=== PATIENT | female | born 1930 | race Caucasian/White ===

== ENCOUNTER 2016-11-22 22:06 | Inpatient (IN) | payer MEDICARE, OTHER ==
[~2016-11-22] VITALS: Ht 157.5 cm; Wt 55.8 kg
[~2016-11-22 22:06] MED LIST: AMIO200T2 PO; ATOR20TA PO; DABI150C PO; DIGO62.5 PO; FENO145T20 PO; FERR1TAB44 PO; FESO8TAB PO; HYOS0.1273 PO; LEVO25TA7 PO; LIOT5TAB8 PO; TOPI-67 PO
[2016-11-22] MEDS ORDERED: IV SET PRIMARY 1 EA INFUS.SET MC ONE (22:19)
[2016-11-22] MEDS ORDERED: IV NS 0.9% 500 ML IV ONE (22:19)
[2016-11-22] MEDS ORDERED: TETRACAINE HCL/PF 0.5% UD 2 ML BOTTLE LEFTEYE ONE (22:30)
[2016-11-22] MEDS ORDERED: FLUORESCEIN SODIUM OPHTH 1 EA STRIP OP ONE (22:30)
[2016-11-22] MEDS ORDERED: IV NS 0.9% 500 ML BAG IV ONE (22:30)
[2016-11-22] MEDS ORDERED: FLUORESCEIN SODIUM OPHTH 1 EA STRIP ONE (22:38)
[2016-11-22] MEDS ORDERED: TETRACAINE HCL/PF 0.5% UD 2 ML BOTTLE ONE (22:38)
[2016-11-22 22:48] LABS: BASOPHILS % (AUTO) 0.4 % (0.0-2.0); EOSINOPHILS # (AUTO) 0.3 /CMM (0.0-0.7); EOSINOPHILS % (AUTO) 4.9 % (0.0-6.0); HEMATOCRIT 38 % (33-45); HEMOGLOBIN 12.5 g/dL (11.5-14.8); LYMPHOCYTES # (AUTO) 1.4 /CMM (0.8-4.8); LYMPHOCYTES % (AUTO) 23.2 % (20.0-44.0); MEAN CORPUSCULAR HEMOGLOBIN 27 PG (26.0-33.0); MEAN CORPUSCULAR HGB CONC 33 g/dl (31.0-36.0); MEAN CORPUSCULAR VOLUME 84 fL (82-100); MONOCYTES # (AUTO) 0.6 /CMM (0.1-1.30); MONOCYTES % (AUTO) 10.4 % (2.0-12.0); NEUTROPHILS # (AUTO) 3.8 /CMM (1.8-8.9); NEUTROPHILS % (AUTO) 61.1 % (43.0-81.0); PLATELET COUNT (AUTO) 307 /CMM (150-450); RDW COEFFICIENT OF VARIATION 15.5 (11.5-15.0); RED BLOOD CELL COUNT(AUTO) 4.55 MIL/uL (4.0-5.2); WHITE BLOOD COUNT (AUTO) 6.2 K/uL (4.3-11.0)
[2016-11-22 22:55] LABS: CALCIUM, SERUM 8.3 mg/dL (8.5-10.1); CARBON DIOXIDE 32 mmol/L (21-32); CHLORIDE 104 mmol/L (98-107); CREATININE 1.5 mg/dL (0.6-1.3); GLUCOSE 129 mg/dL (74-106); POTASSIUM 3.7 mmol/L (3.5-5.1); SODIUM SERUM 139 mmol/L (136-145); UREA NITROGEN, BLOOD 24 mg/dL (7-18)
[2016-11-22] MEDS ORDERED: SOD BORATE/BORIC AC/H2O/NACL 118 ML BOTTLE ONE (22:56)
[2016-11-22 23:00] LABS: ALANINE AMINOTRANSFERASE 42 U/L (12-78); ALBUMIN 3.3 g/dL (3.4-5.0); ALKALINE PHOSPHATASE 57 U/L (46-116); ASPARTATE AMINOTRANSFERASE 52 U/L (15-37); BILIRUBIN,DIRECT 0.1 mg/dL (0.0-0.2); BILIRUBIN,TOTAL 0.4 mg/dL (0.2-1.0)
[2016-11-22] MEDS ORDERED: SOD BORATE/BORIC AC/H2O/NACL 118 ML BOTTLE OP ONE (23:00)
[2016-11-22 23:05] LABS: INR 1.46 (0.87-1.13); TROPONIN I < 0.017 ng/mL (0.00-0.056)
--- NOTE | 2016-11-22 23:16 | NUR ---
PAGED METER REPAIRER HELPER DR MUHAMMAD FOR DR BRAVO EAST
[2016-11-22] MEDS ORDERED: DIGOXIN 0.25 MG TABLET ONE (23:36)
[2016-11-22] MEDS ORDERED: ACETAMINOPHEN ES 500 MG TABLET ONE (23:37)
[2016-11-22] MEDS ORDERED: TDAP [DIPH/PERTUSSIS/TET] 0.5 ML VIAL IM ONE (23:58)
[2016-11-23] VITALS (10 sets, daily range): BP systolic 113–159; BP diastolic 57–73
[2016-11-23] MEDS ORDERED: ACETAMINOPHEN ES 500 MG TABLET PO ONE
[2016-11-23] MEDS ORDERED: TDAP [DIPH/PERTUSSIS/TET] 0.5 ML VIAL IM ONE
[2016-11-23] MEDS ORDERED: DIGOXIN 0.125 MG TABLET PO ONE
--- NOTE | 2016-11-23 00:30 | NUR ---
RN OPEN NOTES RECEIVED PATIENT FROM ER VIA GURNEY WITH DAUGHTER AT BEDSIDE. NO SIGNS OF DISTRESS OR DISCOMFORT. BREATHING EVEN AND UNLABORED. NO IV ACCESS AT THIS TIME, WAS JUST PULLED OUT WHEN PATIENT TRIED TO TRANSFER TO BED. ORIENTED PATIENT TO UNIT AND ROOM. ATTACHED TELE MONITORING WITH SR HR 62. BED IN LOW LOCKED POSITION WITH SIDE RAILS X2. CALL LIGHT WITHIN REACH. WILL CONTINUE TO MONITOR.
[2016-11-23] MEDS ORDERED: HYDROCODONE/APAP 5/325MG 1 EACH TABLET PO ONE (02:00)
[2016-11-23] MEDS ORDERED: HYDROCODONE/APAP 5/325MG 1 EACH TABLET ONE (02:03)
--- NOTE | 2016-11-23 02:20 | NUR ---
RN NOTES ADMINISTER .5 TABLET NORCO 5/325 ORDERED FOR PAIN 7/10 IN LEFT SIDE OF HEAD AND FACE. WILL CONTINUE TO MONITOR.
[2016-11-23] MEDS ORDERED: ONDANSETRON HCL/PF 4 MG/2 ML VIAL IVP PRN (02:30)
[2016-11-23] MEDS ORDERED: MAGNESIUM HYDROXIDE 30 ML UDC PO PRN (02:30)
[2016-11-23] MEDS ORDERED: ACETAMINOPHEN 325 MG TABLET PO PRN (02:30)
[2016-11-23] MEDS ORDERED: MAG HYDROX/AL HYDROX/SIMETH 30 ML UDC PO PRN (02:30)
[2016-11-23] MEDS ORDERED: IV SET PRIMARY PUMP SET 1 EA INFUS.SET MC ONE (02:36)
[2016-11-23] MEDS ORDERED: IV NS 0.9% 1,000 ML ONE (02:36)
[2016-11-23] MEDS: IV NS 0.9% 1,000 ML IV PRN ×2 (02:39→21:10)
[2016-11-23 06:46] LABS: THYROID STIMULATING HORMONE 0.565 uIU/mL (0.358-3.74)
[2016-11-23 06:47] LABS: MAGNESIUM 1.9 mg/dL (1.8-2.4); PHOSPHORUS 3.3 mg/dL (2.5-4.9)
--- NOTE | 2016-11-23 06:54 | NUR ---
RN CLOSING NOTES PATIENT AWAKE IN BED. A/O X3. NO SIGNS OF DISTRESS OR DISCOMFORT. BREATHING EVEN AND UNLABORED. IV ACCESS IN R WRIST WITH NS INFUSING, PATENT AND INTACT, NO SIGNS OF REDNESS OR INFILTRATION. ON TELE MONITORING WITH SR 62. ALL NEEDS MET. NO SIGNIFICANT CHANGES THROUGH THE NIGHT. BED IN LOW LOCKED POSITION WITH SIDE RAILS X2. CALL LIGHT WITHIN REACH. WILL ENDORSE TO AM SHIFT FOR TEMITOPE.
[2016-11-23] MEDS: PANTOPRAZOLE 40 MG TABLET.DR PO SCH (07:30)
--- NOTE | 2016-11-23 07:30 | NUR ---
CUSTOMS VERIFIER OPENING RECEIVED PATIENT A/OX4 DENIES PAIN, SOB, DIFFICULTY BREATHING OR ANY NEUROLOGICAL SYMPTOMS. PATIENT APPEARS STABLE AT THIS TIME. CALL LIGHT IN REACH, BED LOWERED AND LOCKED, RAILS UPX3 FOR SAFETY AND WILL ROUND Q2H OR LESS PER NEEDS. FALL PRECAUTIONS EDUCATED AND PATIENT AWARE TO NOT GET OUT OF BED WITHOUT ASSISTANCE
[2016-11-23] MEDS: DABIGATRAN ETEXILATE MESYLATE 150 MG CAPSULE PO SCH ×2 (09:00→16:17)
--- NOTE | 2016-11-23 09:09 | NUR ---
WOUND CARE CONSULT: PATIENT SEEN AND SKIN ASSESSMENT DONE. PATIENT ALERT, ORIENTED, INDEPENDENT WITH BED MOBILITY, HOWEVER NEEDS ASSIST DUE TO PAIN ON LEFT ARM WITH SLING, CONTINENT, LIS 18. PATIENT WITH MULTIPLE BRUISE IN HEALING STAGES DUE TO "JUST FOUND HERSELF ON THE GROUND" AT THE DRIVEWAY. SHE STATED SHE DID NOT KNOW WHAT HAPPENED. RECOMMEND SKIN CARE, MOISTURE PROTECTION AND ASSIST IN TURNING AND REPOSITIONING. ALL DISCUSSED WITH NURSING STAFF. MD IN AGREEMENT WITH PLAN OF CARE. Addendum: 11/23/16 at 0914 by ANALY CUMMINS WNDNU Amended: Links added.
[2016-11-23] MEDS ORDERED: Z GUARD REMEDY 2 OZ OINT TP PRN (09:30)
[2016-11-23] MEDS: TOPIRAMATE 25 MG TABLET PO SCH (09:59)
[2016-11-23] MEDS: FENOFIBRATE NANOCRYS (145 MG) 145 MG TABLET PO SCH (09:59)
[2016-11-23] MEDS: LIOTHYRONINE SODIUM (5 MCG/TA 5 MCG TABLET PO SCH (09:59)
[2016-11-23] MEDS: LEVOTHYROXINE SODIUM 25 MCG TABLET PO SCH (09:59)
[2016-11-23] MEDS: FERROUS SULFATE (325 MG) 325 MG/TAB TABLET PO SCH (10:00)
[2016-11-23] MEDS: AMIODARONE HCL 200 MG TABLET PO SCH (10:00)
[2016-11-23] MEDS: HYOSCYAMINE SULFATE 0.125 MG TAB.SUBL SL SCH ×2 (10:01→12:32)
[2016-11-23] MEDS: HYDROCODONE/APAP 5/325MG 1 EACH TABLET PO PRN ×2 (10:03→21:12)
--- NOTE | 2016-11-23 12:24 | NUR ---
STUDENT SUCCESS COACH NOTES CHRISTELLE VALENCIA AT BEDSIDE
[2016-11-23] MEDS: DIGOXIN 0.125 MG TABLET PO SCH (12:31)
--- NOTE | 2016-11-23 13:17 | NUR ---
WETLANDS TECHNICIAN NOTES PATIENT DAUGHTER WILL BRING PRADAXA. NEEDING TO SKIP AM DOSE TOO CLOSE TO THE 1700 DOSE.
--- NOTE | 2016-11-23 14:25 | NUR ---
MS RN NOTES PATIENT AWARE WE ARE NEEDING URINE SAMPLE. HAT PLACED IN TOILET FOR PATIENT
[2016-11-23 16:24] LABS: APPEARANCE,URINE CLEAR (CLEAR); BILIRUBIN,URINE NEGATIVE (NEGATIVE); BLOOD, URINE NEGATIVE Ery/uL (NEGATIVE); COLOR,URINE YELLOW (YELLOW); KETONES,URINE NEGATIVE (NEGATIVE); LEUKOCYTE ESTERASE ,URINE NEGATIVE (NEGATIVE); NITRITE, URINE NEGATIVE (NEGATIVE); PROTEIN,URINE NEGATIVE (NEGATIVE); UGLUCOSE NEGATIVE (NEGATIVE); UROBILINOGEN,URINE 0.2 EU/dL (0.2)
[2016-11-23 16:27] LABS: CANNABINOID, URINE NEGATIVE (NEGATIVE); PHENCYCLIDINE SCREEN,URINE NEGATIVE (NEGATIVE)
--- NOTE | 2016-11-23 19:45 | NUR ---
MS RN OPENING PATIENT STABLE NO COMPLICATIONS THROUGHOUT DAY. PATIENT PAIN MANAGED WITH PRN MEDICATIONS AND NON PHARM MEASURES. PATIENT AMBULATING WITH MIN ASSIST TODAY NO COMPLAINTS. PATIENT SITTING UP IN CHAIR AT THIS TIME STABLE WITH FAMILY AT BEDSIDE. PATIENT STATES NO NEEDS. IVF RUNNING ORDERED. CALL LIGHT IN REACH, NON SLIP SOCKS ON AND REMINDING PATIENT OF FALL PRECAUTIONS; SHE STATES UNDERSTANDING. CARE ENDORSED TO RN FOR TEMITOPE
--- NOTE | 2016-11-23 20:03 | NUR ---
RN OPEN NOTES PATIENT AWAKE SITTING IN CHAIR WITH FAMILY AT BEDSIDE. A/O X3. NO SIGNS OF DISTRESS OR DISCOMFORT. BREATHING EVEN AND UNLABORED. IV ACCESS IN R WRIST, PATENT AND INTACT, NO SIGNS OF REDNESS OR INFILTRATION. BED IN LOW LOCKED POSITION WITH SIDE RAILS X2. CALL LIGHT WITHIN REACH. WILL CONTINUE TO MONITOR.
[2016-11-23] MEDS ORDERED: ATORVASTATIN 10 MG TABLET PO SCH (22:00)
--- NOTE | 2016-11-24 06:47 | NUR ---
RN CLOSING NOTES PATIENT RESTING IN BED. A/O X3. NO SIGNS OF DISTRESS OR DISCOMFORT. BREATHING EVEN AND UNLABORED. IV ACCESS IN R WRIST WITH NS INFUSING, PATENT AND INTACT, NO SIGNS OF REDNESS OR INFILTRATION. ALL NEEDS MET. NO SIGNIFICANT CHANGES THROUGH THE NIGHT. BED IN LOW LOCKED POSITION WITH SIDE RAILS X2. CALL LIGHT WITHIN REACH. WILL ENDORSE TO AM SHIFT FOR TEMITOPE.
--- NOTE | 2016-11-24 07:37 | NUR ---
MS RN INITIAL NOTES REPORT RECEIVED AT THE BEDSIDE. PATIENT IS SLEEPING. NOT SOB OR DISTRESS NOTED AT THIS TIME. PATIENT DOES NOT APPEAR TO BE IN PAIN, NO FACIAL GRIMACE NOTED. BED IS IN A LOW POSITION, CALL LIGHT WITHIN PATIENT REACH. WILL CONTINUE TO MONITOR.
[2016-11-24 07:59] LABS: CALCIUM, SERUM 7.7 mg/dL (8.5-10.1); CREATININE 0.9 mg/dL (0.6-1.3); POTASSIUM 3.6 mmol/L (3.5-5.1)
[2016-11-24 08:00] VITALS: BP 153/70
--- NOTE | 2016-11-24 08:00 | NUR ---
MS RN NOTES STUDENT AND INSTRUCTOR TO ADMIN PATIENT PO MEDS.
[2016-11-24 08:05] LABS: BASOPHILS % (AUTO) 0.3 % (0.0-2.0); EOSINOPHILS # (AUTO) 0.2 /CMM (0.0-0.7); EOSINOPHILS % (AUTO) 3.2 % (0.0-6.0); HEMATOCRIT 35 % (33-45); HEMOGLOBIN 11.1 g/dL (11.5-14.8); LYMPHOCYTES # (AUTO) 1.1 /CMM (0.8-4.8); LYMPHOCYTES % (AUTO) 18.8 % (20.0-44.0); MEAN CORPUSCULAR HEMOGLOBIN 27 PG (26.0-33.0); MEAN CORPUSCULAR HGB CONC 32 g/dl (31.0-36.0); MEAN CORPUSCULAR VOLUME 84 fL (82-100); MONOCYTES # (AUTO) 0.6 /CMM (0.1-1.30); MONOCYTES % (AUTO) 10.3 % (2.0-12.0); NEUTROPHILS # (AUTO) 3.8 /CMM (1.8-8.9); NEUTROPHILS % (AUTO) 67.4 % (43.0-81.0); PLATELET COUNT (AUTO) 244 /CMM (150-450); RDW COEFFICIENT OF VARIATION 15.1 (11.5-15.0); RED BLOOD CELL COUNT(AUTO) 4.12 MIL/uL (4.0-5.2); WHITE BLOOD COUNT (AUTO) 5.6 K/uL (4.3-11.0)
[2016-11-24] MEDS: LIOTHYRONINE SODIUM (5 MCG/TA 5 MCG TABLET PO SCH (08:49)
[2016-11-24] MEDS: PANTOPRAZOLE 40 MG TABLET.DR PO SCH (08:50)
[2016-11-24 08:51] VITALS: BP 153/70
[2016-11-24] MEDS: FENOFIBRATE NANOCRYS (145 MG) 145 MG TABLET PO SCH (08:51)
[2016-11-24] MEDS: LEVOTHYROXINE SODIUM 25 MCG TABLET PO SCH (08:51)
[2016-11-24] MEDS: FERROUS SULFATE (325 MG) 325 MG/TAB TABLET PO SCH (08:51)
[2016-11-24] MEDS: AMIODARONE HCL 200 MG TABLET PO SCH (08:51)
[2016-11-24] MEDS: TOPIRAMATE 25 MG TABLET PO SCH (08:51)
[2016-11-24] MEDS ORDERED: PRADAXA 150 MG PO SCH (09:00)
[2016-11-24] MEDS ORDERED: DABIGATRAN 150 MG PO SCH (09:00)
[2016-11-24] MEDS: DIGOXIN 0.125 MG TABLET PO SCH (12:50)
--- NOTE | 2016-11-24 13:32 | NUR ---
MS RN NOTES ANTICIPATING DISCHARGE, ATTEMPTED TO TAKE PHOTOS OF THE SKIN FOR THE CHART. PATIENT REFUSED AT THIS TIME. STATES "THEY DID THAT YESTERDAY, I DON'T THINK YOU NEED TO BOTHER ME AGAIN." EXPLAINED TO THE PATIENT THE REASON AND IMPORTANCE OF DISCHARGE PHOTOS, BUT PATIENT IS STILL REFUSING. WILL ATTEMPT AGAIN CLOSER TO TIME DISCHARGE.
--- NOTE | 2016-11-24 16:29 | NUR ---
MS SQL PROGRAMMER ANALYST NOTE DISCHARGE INSTRUCTIONS GIVEN TO THE PATIENT AND DAUGHTER AND ABLE TO UNDERSTAND. NO SOB OR DISTRESS NOTED AT THIS TIME. PATIENT DENIES PAIN. VITALS CHECKED AND RECORDED. IV DISCONNECTED AND PRESSURE APPLIED. NO BLEEDING NOTED AT THE SITE. A FEW ATTEMPTS WERE MADE TO TAKE DISCHARGE PHOTOS, BUT PATIENT REFUSED SHE STATES THEY WERE JUST TAKEN YESTERDAY. BELONGINGS ACCOUNTED FOR AND ALL PAPERWORK SIGNED. MEDICATION RETURNED TO PATIENT'S DAUGHTER AUG. PATIENT LEFT IN STABLE CONDITION, VIA GURNEY. TO BE TRANSPORTED TO [facility]. REPORT CALLED TO JEANMARIE.
== END 2016-11-24 16:30 | DRG 73 ==
LOC: ER 22:11 → TELE 23:53 → MED 11-23 14:36
PROVIDERS: ADMIT Nurse Practitioner Acute Care; ATTEND Nurse Practitioner Acute Care
DX: G90.01 Carotid sinus syncope (principal); I50.23 Acute on chronic systolic (congestive) heart failure; I13.0 Hypertensive heart and chronic kidney disease with heart failure and stage 1 through stage 4 chronic kidney disease, or unspecified chronic kidney disease; N17.9 Acute kidney failure, unspecified; S00.03XA Contusion of scalp, initial encounter; W18.30XA Fall on same level, unspecified, initial encounter; Y92.008 Other place in unspecified non-institutional (private) residence as the place of occurrence of the external cause; I25.10 Atherosclerotic heart disease of native coronary artery without angina pectoris; S62.102A Fracture of unspecified carpal bone, left wrist, initial encounter for closed fracture; N18.9 Chronic kidney disease, unspecified; K21.9 Gastro-esophageal reflux disease without esophagitis; K27.9 Peptic ulcer, site unspecified, unspecified as acute or chronic, without hemorrhage or perforation; N32.81 Overactive bladder; Z95.0 Presence of cardiac pacemaker; E03.9 Hypothyroidism, unspecified; E78.5 Hyperlipidemia, unspecified; I70.0 Atherosclerosis of aorta; Z86.718 Personal history of other venous thrombosis and embolism; Z87.11 Personal history of peptic ulcer disease; G43.909 Migraine, unspecified, not intractable, without status migrainosus; E11.22 Type 2 diabetes mellitus with diabetic chronic kidney disease; E83.51 Hypocalcemia; E86.9 Volume depletion, unspecified; H91.10 Presbycusis, unspecified ear; I35.0 Nonrheumatic aortic (valve) stenosis; I48.0 Paroxysmal atrial fibrillation; I49.5 Sick sinus syndrome; M81.0 Age-related osteoporosis without current pathological fracture; S00.83XA Contusion of other part of head, initial encounter; Z79.01 Long term (current) use of anticoagulants; Z91.81 History of falling; Z96.652 Presence of left artificial knee joint
CPT/HCPCS: 36415; 70450-TC; 71010-TC; 73110; 80048-TC; 80061-TC; 80076-TC; 80162-TC; 80305; 81000-TC; 82306; 82962-TC; 83735-TC; 84100-TC; 84439-TC; 84443-TC; 84481; 84484-TC; 85025-TC; 85610-TC; 87081-TC; 90715; 92521; 93307-TC; 97001-TC; 97003-TC; A4606; J7030; J7040; Z7610